=== PATIENT | male | born 1970 | race Two or more races ===

== ENCOUNTER 2023-02-02 12:43 | Emergency (ER) | payer SELFPAY ==
[~2023-02-02] VITALS: Ht 165.1 cm; Wt 87.8 kg
[2023-02-02] MEDS ORDERED: EPINEPHrine HCL 1 MG/1 ML AMP SC ONE (14:15)
[2023-02-02] MEDS ORDERED: DexAMETHasone SOD PHOS 10MG/1ML VIAL INJ IM ONE (14:15)
[2023-02-02] MEDS ORDERED: TRIA0.02 TOP (14:52)
[2023-02-02] MEDS ORDERED: METH4PAK PO (14:52)
[2023-02-02 15:19] VITALS: BP 150/94; PULSE 116; RESP 18; TEMP 98.4; O2SAT 96
== END 2023-02-02 15:26 | disposition home or self-care (01) ==
LOC: ER 12:43
DX: T63.441A Toxic effect of venom of bees, accidental (unintentional), initial encounter (principal); Y92.89 Other specified places as the place of occurrence of the external cause
CPT/HCPCS: 96372; 99284; J0171; J1100

== ENCOUNTER 2023-05-30 09:23 | Emergency (ER) | payer OTHER ==
[~2023-05-30] VITALS: Ht 160 cm; Wt 86.0 kg
[~2023-05-30 09:23] MED LIST: METH4PAK PO; TRIA0.02 TOP
[2023-05-30 10:40] LABS: Basophils # (auto) 0.1 10 ^3/uL (0-0.2); Basophils % (auto) 0.4 % (0.0-2.0); Eosinophils # (auto) 0.1 10 ^3/uL (0-0.8); Eosinophils % (auto) 0.7 % (0.0-7.0); Hematocrit 49.2 % (41.0-53.0); Hemoglobin 16.7 g/dL (13.5-17.5); Lymphocytes # (auto) 4.1 10 ^3/uL (0.4-5.4); Lymphocytes % (auto) 23.9 % (10.0-50.0); Mean Corpuscular Hemoglobin 30.3 pg (28.0-32.0); Mean Corpuscular Volume 89.1 fL (80.0-100.0); Monocytes # (auto) 1.6 10 ^3/uL (0-1.3); Monocytes % (auto) 9.4 % (0.0-12.0); Neutrophils # (auto) 11.1 10 ^3/uL (1.6-8.6); Neutrophils % (auto) 65.6 % (37.0-80.0); Nucleated Red Blood Cells % 0.1 %; Red Blood Cells 5.51 10^6/uL (4.5-5.90); Red Cell Distribution Width 13.1 % (11.8-14.3); White Blood Cell 16.9 10^3/uL (4.4-10.8)
[2023-05-30 10:45] LABS: Urine Bacteria NONE SEEN /hpf (None Seen); Urine Blood 1+ /uL (Negative); Urine Clarity Clear (Clear); Urine Color Yellow (Yellow); Urine Mucus FEW (None Seen); Urine Protein, UAD 3+ (Negative); Urine Specific Gravity 1.037 (1.001-1.035); Urine WBC 4 /hpf (0 - 3); Urine pH 6.5 (5.0-8.0)
[2023-05-30] MEDS ORDERED: PANTOPRAZOLE 40 MG TAB PO ONE (10:45)
[2023-05-30 11:02] LABS: Alanine Aminotransferase 32 U/L (7-40); Alkaline Phosphatase 142 U/L (46-116); Anion Gap 8 (5-15); Aspartate Aminotransferase 28 U/L (13-40); BUN/Creatinine Ratio 18.2 (10.0-20.0); Bilirubin, Total 0.6 mg/dL (0.2-1.0); Blood Urea Nitrogen 12 mg/dL (9-23); Carbon Dioxide 29 mmol/L (20-30); Chloride 102 mmol/L (98-107); Glucose 110 mg/dL (74-106); Potassium 3.6 mmol/L (3.5-5.1); Sodium 139 mmol/L (136-145); Total Protein 8.2 g/dL (5.7-8.2)
[2023-05-30] MEDS ORDERED: ONDANSETRON HCL 4 MG/2 ML VIAL IV ONE (12:15)
[2023-05-30] MEDS ORDERED: MORPHINE SULFATE 4 MG/ML SYR/VIAL IV ONE (12:15)
[2023-05-30 17:22] VITALS: BP 139/83; PULSE 83; RESP 17; TEMP 98.1; O2SAT 99
[2023-05-30 19:40] LABS: COVID19 ANTIGEN SOFIA FIA NEGATIVE (NEGATIVE)
== END 2023-05-30 18:00 | disposition short-term general hospital (02) ==
LOC: ER 09:23
DX: K56.609 Unspecified intestinal obstruction, unspecified as to partial versus complete obstruction (principal); R10.84 Generalized abdominal pain; Z79.899 Other long term (current) drug therapy; Z20.822 Contact with and (suspected) exposure to COVID-19
CPT/HCPCS: 36415; 74176; 80053; 81001; 83605; 83690; 85025; 87426; 93005; 96374; 99285; J2405